=== PATIENT | female | born 1980 | race Caucasian/White ===

== ENCOUNTER 2017-03-19 01:00 | Emergency (ER) | payer MEDICAID ==
[~2017-03-19] VITALS: Ht 165.1 cm; Wt 52.5 kg
[~2017-03-19 01:00] MED LIST: AMIT25TA PO; BACL20TA PO; DIAZ10TA PO; HYDR2TAB13 PO; HYOS0.126 PO; METO5TAB57 PO; MORP10CA10; OMEP-110; ONDA4TAB10 SL; OXYC-229 PO; OXYC15TA60; PHENERGAN PO; PROM25TA10 PO; TRAZ50TA18 PO; WARF5TAB
[2017-03-19 01:01] VITALS: BP 125/78
[2017-03-19] MEDS ORDERED: HYDROcodone/APAP 5/325 TABLET ONE (01:22)
[2017-03-19] MEDS ORDERED: AMPH10CA PO (01:28)
[2017-03-19] MEDS ORDERED: OXYC-302 PO (01:28)
[2017-03-19] MEDS ORDERED: HYDROcodone/APAP 5/325 TABLET PO PRN (01:30)
[2017-03-19] MEDS ORDERED: HYDROcodone/APAP 5/325 TABLET PO ONE (01:34)
== END 2017-03-19 02:53 | disposition home or self-care (01) ==
LOC: ED 02:30
DX: S39.012A Strain of muscle, fascia and tendon of lower back, initial encounter (principal); Z90.49 Acquired absence of other specified parts of digestive tract; W01.0XXA Fall on same level from slipping, tripping and stumbling without subsequent striking against object, initial encounter; Y93.89 Activity, other specified; Y92.89 Other specified places as the place of occurrence of the external cause; Y99.9 Unspecified external cause status
CPT/HCPCS: 72072; 72110; 99284

== ENCOUNTER 2017-07-19 18:00 | Emergency (ER) | payer MEDICAID ==
[~2017-07-19] VITALS: Ht 165.1 cm; Wt 47.0 kg
[~2017-07-19 18:00] MED LIST changes: +AMPH10CA PO; -HYDR2TAB13 PO; +HYDR2TAB29 PO; -HYOS0.126 PO; +HYOS0.1282 PO; -OXYC-229 PO; +OXYC-302 PO; +OXYC-307 PO
[2017-07-19 18:55] LABS: HEMOGLOBIN 12.4 g/dL (11.7-16.4); WHITE BLOOD COUNT 6.6 x10^3/uL (3.4-10)
[2017-07-19 19:08] LABS: ASPARTATE AMINO TRANSFERASE 21 U/L (15-37); BLOOD UREA NITROGEN 8 mg/dL (7-18)
[2017-07-19] MEDS ORDERED: HYDROcodone/APAP 5/325 TABLET ONE (19:57)
[2017-07-19 19:59] VITALS: BP 95/58
[2017-07-19] MEDS ORDERED: HYDROcodone/APAP 5/325 TABLET PO ONE (20:00)
== END 2017-07-19 20:01 | disposition home or self-care (01) ==
LOC: ED 18:15
DX: R51 Headache (principal); R55 Syncope and collapse; F15.10 Other stimulant abuse, uncomplicated
CPT/HCPCS: 36415; 70450; 80053; 82962; 85025; 93005; 99285

== ENCOUNTER 2017-08-28 10:28 | Emergency (ER) | payer MEDICAID ==
[~2017-08-28] VITALS: Ht 165.1 cm; Wt 56.2 kg
[2017-08-28 10:30] VITALS: BP 111/73
== END 2017-08-28 11:26 | disposition home or self-care (01) ==
LOC: ED 11:15
DX: L02.31 Cutaneous abscess of buttock (principal)
CPT/HCPCS: 10060

== ENCOUNTER 2017-08-30 10:52 | Emergency (ER) | payer MEDICAID ==
[~2017-08-30] VITALS: Ht 165.1 cm; Wt 58.9 kg
[2017-08-30 10:54] VITALS: BP 104/67
== END 2017-08-30 11:35 | disposition home or self-care (01) ==
LOC: ED 11:30
DX: L02.31 Cutaneous abscess of buttock (principal); Z90.49 Acquired absence of other specified parts of digestive tract
CPT/HCPCS: 99281

== ENCOUNTER 2017-09-10 12:06 | Emergency (ER) | payer MEDICAID ==
[~2017-09-10] VITALS: Ht 165.1 cm; Wt 55.2 kg
[2017-09-10 12:08] VITALS: BP 133/73
[2017-09-10] MEDS ORDERED: DULO60CA7 PO (12:24)
[2017-09-10] MEDS ORDERED: MIRT15TA PO (12:24)
== END 2017-09-10 12:36 | disposition home or self-care (01) ==
LOC: ED 12:25
DX: Z76.0 Encounter for issue of repeat prescription (principal); F32.9 Major depressive disorder, single episode, unspecified; Z90.49 Acquired absence of other specified parts of digestive tract; Z98.84 Bariatric surgery status
CPT/HCPCS: 99283